=== PATIENT | male | born 1945 | race Caucasian/White ===

== ENCOUNTER 2016-04-12 07:50 | Inpatient (IN) | payer MEDICARE, OTHER ==
[2016-04-01 11:46] LABS: HEMATOCRIT 39.5 % (37.9-51.0); HGB HCT DIFFERENCE -0.5; MEAN CORPUSCULAR HEMOGLOBIN 30.6 pg (27.0-33.4); MEAN CORPUSCULAR HGB CONC 32.8 g/dL (32.0-36.0); MEAN CORPUSCULAR VOLUME 93 fl (80-97); RED BLOOD COUNT 4.23 10^6/uL (4.35-5.55); RED CELL DISTRIBUTION WIDTH 14.2 % (11.5-14.0); WHITE BLOOD COUNT 6.2 10^3/uL (4.0-10.5)
[2016-04-01 12:06] LABS: APPEARANCE,URINE CLEAR; BILIRUBIN,URINE NEGATIVE (NEGATIVE); GLUCOSE, URINE NEGATIVE (NEGATIVE); KETONES,URINE NEGATIVE (NEGATIVE); LEUKOCYTE ESTERASE,URINE NEGATIVE (NEGATIVE); NITRITE,URINE NEGATIVE (NEGATIVE); PROTEIN,URINE NEGATIVE (NEGATIVE); URINE SPECIFIC GRAVITY 1.011; UROBILINOGEN,URINE NEGATIVE mg/dL (<2.0)
[2016-04-01 12:13] LABS: ANION GAP 12 (5-19); BLOOD UREA NITROGEN 27 mg/dL (7-20); CALCIUM 9.6 mg/dL (8.4-10.2); CARBON DIOXIDE 30 mmol/L (22-30); CHLORIDE 99 mmol/L (98-107); CREATININE RESULT 1.11 mg/dL (0.52-1.25); GLUCOSE 145 mg/dL (75-110); POTASSIUM 5.1 mmol/L (3.6-5.0); SODIUM 141.2 mmol/L (137-145)
[~2016-04-12 07:50] MED LIST: BUPIVACAINE INJ/PF LIPOSOME/PF 266 MG/20 ML SDV IJ PRN; CELECOXIB 200 MG CAPSULE PO PRN; IBUPROFEN 800 MG in NORMAL SALINE 250 ML IV PRN; LACTATED RINGERS 1000 ML IV PRN; LANSOPRAZOLE 15 MG TAB.RAP.DR PO PRN; LIDOCAINE 0.5% INJ-PF (5 MG/ML) 50 ML SDV SUBCUT PRN; OXYCODONE HCL SR 10 MG TABLET PO PRN; SCOPOLAMINE HYDROBROMIDE 1.5 MG PATCH.TD72 TD PRN; VANCOMYCIN HCL 1,000 MG in DEXTROSE 5%-WATER 250 ML IV PRN
[2016-04-12] MEDS ORDERED: THROMBIN (BOVINE) TOPICAL 5000 UNIT VIAL ONE (07:53)
[2016-04-12] MEDS ORDERED: THROMBIN (BOVINE) TOPICAL 20000 UNIT VIAL ONE (07:53)
[2016-04-12] MEDS ORDERED: BUPIVACAINE INJ/PF LIPOSOME/PF 266 MG/20 ML SDV ONE (07:54)
[2016-04-12] MEDS ORDERED: CEFAZOLIN INJ 1 GM VIAL ONE (08:02)
[2016-04-12] MEDS ORDERED: FENTANYL CITRATE INJ/PF 100 MCG/2 ML AMPUL ONE ×2 (09:17)
[2016-04-12] MEDS ORDERED: HYDROMORPHONE HCL INJ/PF 2 MG/ML AMPULE ONE (09:17)
[2016-04-12] MEDS ORDERED: EPHEDRINE SULFATE INJ 50 MG/1 ML AMPULE ONE (09:18)
[2016-04-12] MEDS ORDERED: PROPOFOL INJ 200 MG/20 ML VIAL IV ONE (09:18)
[2016-04-12] MEDS ORDERED: TRANEXAMIC ACID INJ/PF 1,000 MG/10 ML SDV IV ONE ×2 (09:18→13:00)
[2016-04-12] MEDS ORDERED: MIDAZOLAM 2 MG/2 ML INJ ONE ×2 (09:18)
[2016-04-12] MEDS ORDERED: ONDANSETRON HCL INJ/PF 4 MG/2 ML SDV IV PRN (10:24)
[2016-04-12] MEDS ORDERED: DIPHENHYDRAMINE HCL 50 MG/ML VIAL IV PRN ×2 (10:24→11:05)
[2016-04-12] MEDS ORDERED: FENTANYL CITRATE INJ/PF 100 MCG/2 ML AMPUL IV PRN ×3 (10:24)
[2016-04-12] MEDS ORDERED: MEPERIDINE HCL/PF INJ 25 MG/1 ML DISP.SYRIN IV PRN (10:24)
--- NOTE | 2016-04-12 11:04 | Operative Report ---
Operative Report DATE OF SURGERY: 04/12/16 PREOPERATIVE DIAGNOSIS: Left knee arthritis OPERATION: Left knee arthroplasty SURGEON: JORDY MAY ANESTHESIA: Spinal TISSUE REMOVED OR ALTERED: Bone to pathology ESTIMATED BLOOD LOSS: 100 PROCEDURE: Implants used: Femur: Striker triathlon #7 CR femur Tibia:, #6 tibia Tibial liner:, 9 mm CS insert Patella: 38 mm oval patella Procedure with the patient supine on the operating table the, left the limb is prepped and draped in a sterile fashion. The limb was elevated for exsanguination and the tourniquet inflated to 280 torr. A standard midline median parapatellar approach the knee is taken. Access is gained to the femoral canal through the intercondylar notch. Intramedullary alignment instrumentation used to resect 10 mm of distal femur in 5 of valgus. Sizing guide indicated a size 7 femur. Appropriate cutting jig is then used to fashion anterior posterior and chamfer cuts. A trial reduction femurs performed and this is judged to be adequate. Attention was next turned to the tibia. Using an extra medullary alignment system 9 millimeters was resected off the lateral tibial plateau. This is sized to a size 6 tibia. A trial reduction was now performed with a 7 femur and a 6 tibia using a 9 millimeters spacer. It is full extension and central patellofemoral tracking. The articular surface the patella was next resected using an oscillating saw. All trial implants were removed. Polymethylmethacrylate is mixed and used to cement the above implants in place. On adequate curing the cement excess cement was removed the tourniquet was deflated hemostasis obtained the wound is then closed in layers using interrupted Vicryl followed by nhan. A sterile compressive dressing was applied and the patient returned to recovery room in satisfactory condition.
[2016-04-12] MEDS ORDERED: RINGERS SOLUTION,LACTATED 1,000 ML IV PRN (11:05)
[2016-04-12] MEDS ORDERED: MORPHINE SULFATE 10 MG/ML INJ IM PRN (11:05)
[2016-04-12] MEDS ORDERED: MORPHINE SULFATE 10 MG/ML INJ IV PRN ×2 (11:05)
[2016-04-12] MEDS ORDERED: ONDANSETRON 4 MG TAB.RAPDIS PO PRN (11:05)
[2016-04-12] MEDS ORDERED: GLUCAGON,HUMAN RECOMB 1 MG INJ IM PRN (11:53)
[2016-04-12] MEDS ORDERED: INSULIN LISPRO 100 UNIT/ML 3 ML VIAL SUBCUT PRN (11:53)
[2016-04-12] MEDS ORDERED: DEXTROSE 50%-WATER SYRINGE 12.5 GM/25 ML DOSE IV PRN (11:53)
[2016-04-12] MEDS ORDERED: DEXTROSE 40% GEL 15 GM TUBE X 2 PO PRN (11:53)
[2016-04-12] MEDS ORDERED: DEXTROSE 50%-WATER SYRINGE 25 GM/50 ML DOSE IV PRN (11:53)
[2016-04-12] MEDS ORDERED: DEXTROSE 40% GEL 15 GM TUBE PO PRN (11:53)
[2016-04-12] MEDS ORDERED: BENAZEPRIL HCL 20 MG TABLET PO ONE (12:00)
[2016-04-12] MEDS: OXYCODONE HCL IR 5 MG TABLET PO PRN ×2 (14:31→21:40)
[2016-04-12] MEDS: IBUPROFEN 800 MG in NORMAL SALINE 250 ML IV SCH (17:59)
[2016-04-12] MEDS: METFORMIN HCL 500 MG TABLET PO SCH (17:59)
[2016-04-12] MEDS ORDERED: ROPINIROLE HCL 1 MG TABLET PO SCH (18:00)
[2016-04-12] MEDS ORDERED: (PENDING PHARMACY ID) (Temazepam [Restoril] 30 MG) PO SCH (18:00)
[2016-04-12] MEDS: OXYCODONE HCL SR 10 MG TABLET PO SCH (21:39)
[2016-04-12] MEDS ORDERED: RIVAROXABAN 10 MG TABLET PO SCH (22:00)
[2016-04-12] MEDS ORDERED: DOXAZOSIN MESYLATE 4 MG TABLET PO SCH (22:00)
[2016-04-12] MEDS ORDERED: TEMAZEPAM 15 MG CAPSULE PO SCH (22:00)
[2016-04-12] MEDS ORDERED: VANCOMYCIN HCL 1,000 MG in DEXTROSE 5%-WATER 250 ML IV ONE (23:00)
[2016-04-12] MEDS: MORPHINE SULFATE 10 MG/ML INJ IV PRN (23:28)
[2016-04-13] MEDS: IBUPROFEN 800 MG in NORMAL SALINE 250 ML IV SCH ×2 (01:15→10:19)
[2016-04-13] MEDS: OXYCODONE HCL IR 5 MG TABLET PO PRN ×2 (05:12→13:16)
[2016-04-13] MEDS ORDERED: LANSOPRAZOLE 30 MG TAB.RAP.DR PO SCH (06:00)
[2016-04-13 06:33] LABS: HEMATOCRIT 32.7 % (37.9-51.0); HEMOGLOBIN 10.7 g/dL (13.5-17.0); HGB HCT DIFFERENCE -0.6; MEAN CORPUSCULAR HEMOGLOBIN 30.5 pg (27.0-33.4); MEAN CORPUSCULAR HGB CONC 32.8 g/dL (32.0-36.0); MEAN CORPUSCULAR VOLUME 93 fl (80-97); RED BLOOD COUNT 3.52 10^6/uL (4.35-5.55); RED CELL DISTRIBUTION WIDTH 13.7 % (11.5-14.0); WHITE BLOOD COUNT 8.3 10^3/uL (4.0-10.5)
[2016-04-13 06:48] LABS: ANION GAP 7 (5-19); BLOOD UREA NITROGEN 22 mg/dL (7-20); CALCIUM 8.7 mg/dL (8.4-10.2); CARBON DIOXIDE 29 mmol/L (22-30); CHLORIDE 103 mmol/L (98-107); CREATININE RESULT 1.26 mg/dL (0.52-1.25); GLUCOSE 113 mg/dL (75-110); POTASSIUM 4.3 mmol/L (3.6-5.0); SODIUM 139.3 mmol/L (137-145)
--- NOTE | 2016-04-13 06:56 | PDOC DISCHARGE SUMMARY ---
General - Admit/Disc Date/PCP Admission Date/Primary Care Provider: 04/12/16 07:50 ALMA DELIA LINARES MD Discharge Date: 04/13/16 - Discharge Diagnosis (1) Arthritis of knee, left Is this a current diagnosis for this admission?: YesSummary: 70-year-old white male who was admitted for elective left knee arthroplasty because of progressive pain and functional disability - Additional Information Home Medications: Aspirin [Adult Low Dose Aspirin EC] 81 mg PO QAM 03/30/16 Benazepril HCl [Lotensin] 20 mg PO QAM 03/30/16 Citalopram Hydrobromide [Celexa 40 mg Tablet] 1 tab PO QAM 03/30/16 Doxazosin Mesylate [Cardura 4 mg Tablet] 4 mg PO QPM 03/30/16 Fenofibrate Nanocrystallized [Fenofibrate] 145 mg PO QAM 03/30/16 Hydrocodone Bit/Acetaminophen [Hydrocodon-Acetaminophn 10-325] 1 - 1.5 each PO QID 03/30/16 Metformin HCl [Glucophage] 500 mg PO BID 03/30/16 Multivitamin [Multivitamins] 1 each PO QAM 03/30/16 Ropinirole HCl 1 mg PO QPM 03/30/16 Temazepam [Restoril] 30 mg PO QPM 03/30/16 History of Present Illness History of Present Illness: TIFFANY MCCRARY is a 70 year old male Hospital Course Hospital Course: Patient submitted through the operating room where he undergoes an uncomplicated left knee arthroplasty. His returned to floor in satisfactory condition. Analgesia is adequate. Patient seen by physical therapy and ambulates 150 feet on the first day. Blood sugars are controlled between 9514 on his current regimen. Tentative plan will be for discharge home with home health nursing, home health physical therapy, we'll walker, but Physical Exam Vital Signs: Temp Pulse Resp BP Pulse Ox 36.9 C 82 16 125/65 97 04/13/16 04:06 04/13/16 04:06 04/13/16 04:06 04/13/16 04:06 04/13/16 04:06 Intake & Output 04/11/16 04/12/16 04/13/16 06:59 06:59 06:59 Intake Total 6330 Output Total 5700 Balance 630 Weight 104.6 kg General appearance: PRESENT: no acute distress Head exam: PRESENT: normocephalic Respiratory exam: PRESENT: unlabored Cardiovascular exam: PRESENT: RRR Pulses: PRESENT: +1 pedal pulses bilateral Vascular exam: PRESENT: normal capillary refill GI/Abdominal exam: PRESENT: soft Rectal exam: PRESENT: deferred Extremities exam: PRESENT: other - Left knee dressing removed. Wound is clean dry and intact. Commode proximal nhan. Acticoat dressing applied. Results Laboratory Results: 04/13/16 05:55 04/13/16 05:55 04/12/16 04/13/16 04/13/16 08:18 05:55 05:55 WBC 8.3 RBC 3.52 L Hgb 10.7 L Hct 32.7 L MCV 93 MCH 30.5 MCHC 32.8 RDW 13.7 Plt Count 171 Sodium 139.3 Potassium 4.8 4.3 Chloride 103 Carbon Dioxide 29 Anion Gap 7 BUN 22 H Creatinine 1.26 H Est GFR ( Amer) > 60 Est GFR (Non-Af Amer) 56 L Glucose 113 H Calcium 8.7 Status: Imported from [facility] BEING DISCHARGED WITH ANY OF THE FOLLOWING DIAGNOSIS?: No VTE patient discharged on overlapping Therapy?: Yes Plan Discharge Plan: Patient to be discharged home with home health nursing, home health physical therapy, we will Walker, bedside commode. This a be arranged by social work. Follow-up can be with Dr. Kidd in a [facility] for surgery approximately 2 weeks. Time Spent: Greater than 30 Minutes
[2016-04-13] MEDS: MORPHINE SULFATE 10 MG/ML INJ IV PRN (07:59)
[2016-04-13] MEDS ORDERED: BENAZEPRIL HCL 20 MG TABLET PO SCH ×2 (08:00→10:00)
[2016-04-13] MEDS ORDERED: (PENDING PHARMACY ID) (Citalopram Hydrobromide [Celexa 40 Mg Tablet] 1 TAB) PO SCH (08:00)
[2016-04-13] MEDS ORDERED: FENOFIBRATE NANOCRYSTALLIZED 145 MG TABLET PO SCH (08:00)
[2016-04-13] MEDS ORDERED: MULTIVITAMIN TABLET PO SCH (10:00)
[2016-04-13] MEDS ORDERED: CITALOPRAM HYDROBROMIDE 20 MG TABLET PO SCH (10:00)
[2016-04-13] MEDS: OXYCODONE HCL SR 10 MG TABLET PO SCH (10:12)
[2016-04-13] MEDS: METFORMIN HCL 500 MG TABLET PO SCH (10:13)
[2016-04-13 13:07] VITALS: BP 125/65
== END 2016-04-13 13:23 | disposition home health service (06) | DRG 470 ==
LOC: INOR 07:50 → 4S 12:35
PROVIDERS: ADMIT Orthopaedic Surgery; ATTEND Orthopaedic Surgery
PROC: 0SRD0J9 Replacement of Left Knee Joint with Synthetic Substitute, Cemented, Open Approach (ICD-10-PCS; principal; 2016-04-12 10:00)
DX: M17.12 Unilateral primary osteoarthritis, left knee (principal); E11.9 Type 2 diabetes mellitus without complications; K21.9 Gastro-esophageal reflux disease without esophagitis; F41.9 Anxiety disorder, unspecified; Z83.3 Family history of diabetes mellitus; Z82.49 Family history of ischemic heart disease and other diseases of the circulatory system; Z90.49 Acquired absence of other specified parts of digestive tract; Z79.82 Long term (current) use of aspirin
CPT/HCPCS: 01402; 36415; 80048; 81001; 82962; 83036; 84132; 85027; 88305; 88311; 94799; C2625; C9290; G8978-GP; G8979-GP; G8987-GO; G8988-GO; J0690; J1170; J1741; J2250; J2270; J2704; J3010; J3370; J3490; J7050; J7060; J7120